=== PATIENT | male | born 1965 | race Caucasian/White ===

== ENCOUNTER 2021-03-15 10:02 | Outpatient (RCR) | payer BC ==
[~2021-03-15 10:02] MED LIST: LIPITOR 40MG TA40 MG PO; MULTIPLE VITAMI1 TA2 PO; NORVASC 5MG5 MG/TAB PO; PEPCID AC 10MG10 MG PO; PLAVIX 75MG TAB75 MG PO
== END 2021-03-15 10:16 | disposition home or self-care (01) ==
LOC: MKS.ESL.PT 10:02
DX: M25.561 Pain in right knee (principal)